=== PATIENT | male | born 1950 | race Caucasian/White ===

== ENCOUNTER → 2017-04-15 | Outpatient (CLI) | payer MEDICARE, OTHER ==
--- NOTE | 2017-04-15 11:26 | KCIC ---
CT CHEST WO CONTRAST dated 04/15/2017 9:00 AM Indication: Smoking history, family history lung cancer Comparison: None Technique: Noncontrast CT imaging was performed of the[chest], multiplanar reconstruction images submitted. One or more of the following individualized dose reduction techniques were utilized for this examination: 1. Automated exposure control 2. Adjustment of the mA and/or kV according to patient size 3. Use of iterative reconstruction technique Findings: There is some peripheral septal thickening, somewhat nodular appearance with variable involvement of the upper and lower lobes bilaterally, also of the right middle lobe. There is noncalcified 7-8 mm nodule along the left major fissure axial image 36 series 2. There is somewhat more confluent the density probably due to component of fibrotic change along the superior lateral aspects of the major fissures bilaterally. There are some scattered small foci of more discrete nodularity at the periphery such as left upper lobe up to 3 mm axial images 30 and up to 3 to 4 mm left lower lobe axial image 54 with adjacent similar size small nodule, also 3 mm nodule left lower lobe axial image 55. Major airways are patent. There is no dependent pleural fluid or pneumothorax, pericardial effusion. There is coronary calcification. Thoracic aortic caliber is within normal limits. No significantly enlarged lymph nodes are identified of the chest. There is 36 mm hypodense lesion right kidney, density greater 6 of a cyst -1 Hounsfield unit. IMPRESSION: 1. There is some variable peripheral septal thickening some of which has a nodular appearance, could be due to sequela of early interstitial fibrosis, no central nodularity identified at this time. There are some more discrete noncalcified nodules, largest as stated. Lung RADS category 3, probably benign findings. Follow up to assess stability is recommended in 6 months. 2. There is coronary calcification. 3. There is likely right renal cyst. Electronically signed by: Rinku Woodard MD (04/15/2017 11:22 AM) [id number]
== END | disposition home or self-care (01) ==
LOC: KCIC CT 08:38
PROVIDERS: ATTEND Family Medicine
DX: R91.8 Other nonspecific abnormal finding of lung field (principal); Z80.1 Family history of malignant neoplasm of trachea, bronchus and lung; Z85.118 Personal history of other malignant neoplasm of bronchus and lung; Z87.891 Personal history of nicotine dependence
CPT/HCPCS: 71250

== ENCOUNTER → 2017-10-08 | Outpatient (CLI) | payer MEDICARE, OTHER | END | disposition home or self-care (01) | LOC: KCIC CT 11:01 | DX: R91.1 Solitary pulmonary nodule (principal) | CPT/HCPCS: 71250 ==

== ENCOUNTER → 2018-09-28 | Outpatient (CLI) | payer MEDICARE, OTHER ==
--- NOTE | 2018-09-28 10:12 | KCIC ---
CT LOW DOSE LUNG SCREENING Indication: Lung nodule Technique: Noncontrast CT imaging was performed of the chest as per low low-dose protocol, multiplanar reconstruction images submitted. One or more of the following individualized dose reduction techniques were utilized for this examination: 1. Automated exposure control 2. Adjustment of the mA and/or kV according to patient size 3. Use of iterative reconstruction technique. Comparison: April 15, 2017 and October 08, 2017 Findings: A 0.7 cm left upper lobe nodule image 242 series 3 is unchanged. Somewhat more confluent density at the lateral margin of the left major fissure extending to the pleural surface image 212 series 3 is similar in appearance, greatest dimension about 1.2 cm. There are scattered small subpleural foci of nodularity associated with areas of septal thickening with lower lobe predominance as seen previously. There is again more confluent density along the lateral margin of the right major fissure left about 1.8 cm transverse dimension image 234 series 3 overall similar. No new discrete nodularity is identified. There is no new lobar infiltrate, pleural or pericardial effusion, pneumothorax. Major airways are patent. There is coronary calcification. Thoracic aortic caliber is within normal limits. There is no new significant lymphadenopathy of the chest. Not fully included, there is exophytic lesion of the right kidney up to about 3 cm in size, included portion similar comparing with 2017 exam with density measurements of a cyst. There are again old bilateral posterior rib fractures. IMPRESSION: 1. Findings are stable, more discrete 0.7 cm nodule left upper lobe near the fissure. Lung RADS category 2-benign findings. One year follow-up low dose noncontrast chest CT is recommended. 2. There is again evidence of interstitial lung disease. 3. There is again right renal cyst not fully evaluated. 4. There is coronary calcification. Electronically signed by: Rinku Woodard MD (09/28/2018 10:09 AM) [id number]
== END | disposition home or self-care (01) ==
LOC: KCIC CT 08:26
PROVIDERS: ATTEND Family Medicine
DX: Z12.2 Encounter for screening for malignant neoplasm of respiratory organs (principal); R91.1 Solitary pulmonary nodule; J84.9 Interstitial pulmonary disease, unspecified; N28.1 Cyst of kidney, acquired; I25.10 Atherosclerotic heart disease of native coronary artery without angina pectoris; Z87.891 Personal history of nicotine dependence
CPT/HCPCS: G0297

== ENCOUNTER → 2019-10-20 | Outpatient (CLI) | payer MEDICARE, OTHER ==
--- NOTE | 2019-10-20 11:40 | RAD ---
CT of the chest without contrast, low dose lung cancer screening protocol 10/20/2019 INDICATION: Low dose lung cancer screening exam. History of lung nodules. COMPARISON STUDY: CT of the chest without contrast September 28, 2018 TECHNIQUE: Multidetector CT imaging of the chest was performed using a low-dose, lung cancer screening protocol. FINDINGS: Heart size is normal. Coronary calcification again noted. No pathologically enlarged mediastinal adenopathy is identified. Changes of interstitial lung disease are similar. No pneumothorax, pleural effusion, or new focal consolidative infiltrate is identified. Left upper lung triangular nodular opacity along the major fissure on the left is similar to comparison exam (axial image 164), measuring approximately 6 to 7 mm in size. This may represent intrapulmonary lymph node. There is a to 4 mm nodular opacity in the more inferior left lower lobe is new from prior study( Axial image 186). No acute changes in the upper abdomen are identified. No acute osseous changes are seen. IMPRESSION: 1. New 3 mm nodular opacity, left lower lobe. Lung RADS category 3 . 6 month low-dose follow-up CT recommended. 2. Stable 7 mm nodular opacity, along the left major fissure. 3. Stable chronic lung disease CT DOSING PQRS STATEMENT: One or more of the following individualized dose reduction techniques were utilized for this examination: 1. Automated exposure control 2. Adjustment of the mA and/or kV according to patient size 3. Use of iterative reconstruction technique. Electronically signed by: Jose Eastman MD (10/20/2019 11:38 AM) [id number]
== END | disposition home or self-care (01) ==
LOC: CT 10:42
PROVIDERS: ATTEND Family Medicine
DX: Z12.2 Encounter for screening for malignant neoplasm of respiratory organs (principal); R91.8 Other nonspecific abnormal finding of lung field; I25.10 Atherosclerotic heart disease of native coronary artery without angina pectoris; J84.9 Interstitial pulmonary disease, unspecified; Z87.891 Personal history of nicotine dependence
CPT/HCPCS: G0297

== ENCOUNTER → 2020-04-12 | Outpatient (CLI) | payer MEDICARE, OTHER ==
--- NOTE | 2020-04-12 16:33 | KCIC ---
PQRS Compliance Statement: One or more of the following individualized dose reduction techniques were utilized for this examination: 1. Automated exposure control 2. Adjustment of the mA and/or kV according to patient size 3. Use of iterative reconstruction technique CT LOW DOSE LUNG SCREENING Clinical Indication: Reason: Lung cancer screening, lung nodules. Past smoker of 40 yrs. / Spl. Instructions: / History: Comparison: CT low-dose chest, October 20, 2019. TECHNIQUE: Helical CT imaging of the chest is performed without IV contrast using low-dose technique. Findings: No adenopathy in the chest. Coronary artery disease. The great vessels are stable. Cardiac size normal, no pericardial effusion. The central airways are patent. Changes of interstitial lung disease are without significant progression. Probable intrafissural lymph node in the left upper lobe adjacent to the major fissure is stable, image 161 of series 6. The 4 mm nodule in the left lower lobe more inferiorly now appears to be calcified, image 182. No new noncalcified pulmonary nodule is identified. The visualized upper abdomen is unremarkable. Thoracic spine alignment is maintained. There are old left and right posterior rib fractures. IMPRESSION: 1. The previously described 4 mm nodule in the left lower lobe now appears to be calcified. The probable intrafissural lymph node in the left upper lobe is stable. Continue annual screening with low-dose CT in 12 months. 2. Lung RADS category 2. Electronically signed by: Kishore Cruz MD (04/12/2020 4:30 PM) [id number]
== END ==
LOC: KCIC CT 12:22
PROVIDERS: ATTEND Family Medicine
DX: Z12.2 Encounter for screening for malignant neoplasm of respiratory organs (principal); R91.8 Other nonspecific abnormal finding of lung field; R91.1 Solitary pulmonary nodule; J98.4 Other disorders of lung; Z87.891 Personal history of nicotine dependence
CPT/HCPCS: G0297

== ENCOUNTER → 2021-04-06 | Outpatient (CLI) | payer MEDICARE, OTHER ==
--- NOTE | 2021-04-06 13:27 | KCIC ---
EXAM: CT CHEST WITHOUT CONTRAST (LDCT LUNG CANCER SCREENING). HISTORY: Risk factors for pulmonary malignancy. Smoker for 40 years. TECHNIQUE: CT of the chest was performed without intravenous contrast using a low-dose lung screening protocol. Findings analysis is based on ACR Lung-RADS v1.1. *One or more of the following individual ized dose reduction techniques were utilized for this examination: 1. Automated exposure control. 2. Adjustment of the mA and/or kV according to patient size. 3. Use of iterative reconstruction technique. COMPARISON: 04/12/2020. FINDINGS: Nodules: Similar bilateral intrafissural lymph node in the left upper lobe adjacent to the major fiss ure is stable 161/4. Similar 4 mm partially calcified nodule in the left lower lobe (91/4). Redemonst rated changes of interstitial lung disease are without significant progression. No new noncalcified p ulmonary nodules identified. Other findings: Images of the upper abdomen reveal no acute abnormality. Bone windows reveal no suspi cious lesions. There are no pathologically enlarged mediastinal or axillary lymph nodes. There is no pleural or nathanael cardial effusion. The heart is not enlarged. No pericardial effusion. IMPRESSION/RECOMMENDATION: 1. Similar appearance of partially calcified 4 mm nodule in the left lower lobe. Similar probable int rafissural lymph node in the left upper lobe, stable. Continued annual screening with low dose CT in 12 months. 2. ACR Lung-RADS category: 2. Continue annual screening with LDCT in 12 months. Electronically signed by: Kirk Freedman DO (04/06/2021 1:25 PM) [facility]
== END ==
LOC: KCIC CT 10:35
PROVIDERS: ATTEND Family Medicine
DX: Z09 Encounter for follow-up examination after completed treatment for conditions other than malignant neoplasm (principal); Z12.2 Encounter for screening for malignant neoplasm of respiratory organs; R91.8 Other nonspecific abnormal finding of lung field
CPT/HCPCS: 71271